=== PATIENT | male | born 1995 | race Caucasian/White ===

== ENCOUNTER 2016-09-08 10:31 | Emergency (ER) | payer OTHER ==
[2016-09-08 10:42] VITALS: BP 129/68
--- NOTE | 2016-09-08 11:03 | PROVIDER DOCUMENTATION ---
HPI-Respiratory General - General Chief Complaint: Cough Stated Complaint: POSS PNEUMONIA Time Seen by Provider: 09/08/16 10:45 Source: patient Allergies/Adverse Reactions: Patient Allergies Allergy/AdvReac Type Severity Reaction Status Date / Time No Known Allergies Allergy Verified 01/23/16 19:30 Home Medications: Home Medication List Medication Instructions Recorded Confirmed Last Taken Type Amoxicillin/Pot Clavulanate 875 mg PO Q12HR #14 tablet 09/08/16 Unknown Rx [Augmentin] Benzonatate [Tessalon Perle] 200 mg PO QHS PRN #30 capsule 09/08/16 Unknown Rx Loratadine/Pse E.r. 24 Hr 1 each PO DAILY #20 tablet 09/08/16 Unknown Rx [Claritin-D 24 Hr] - History of Present Illness-Resp Nature of Presenting Problem: 20 y/o WM c/o cough x 2.5 weeks. Pt states he has been coughing up green/ brown mucus. Denies any fever/chills, sore throat, abd. pain, N/V/D/C. States taking nyquil OTC with some relief of the cough, but only for 1-2 hours at a time. Reports being outside in cold for [employer] over last 4 days. Review of Systems - Adult - REVIEW OF SYSTEMS - ADULT Constitutional: reports: no symptoms reported. denies: chills, fever Eyes: reports: no symptoms reported. denies: blurred vision, double vision Ears, Nose, Mouth & Throat: reports: sinus problem. denies: ear pain, nose pain Cardiovascular: reports: no symptoms reported. denies: chest pain, palpitations Respiratory: reports: see HPI, cough. denies: shortness of breath Gastrointestinal: reports: see HPI, vomiting. denies: abdominal pain, diarrhea , nausea Genitourinary: reports: no symptoms reported. denies: dysuria, frequency Musculoskeletal: reports: no symptoms reported. denies: joint pain, joint swelling Integumentary: reports: no symptoms reported. denies: nail changes, rash Neurological: reports: no symptoms reported. denies: headache/migraines, numbness, paresthesia Psychiatric: reports: no symptoms reported Endocrine: reports: no symptoms reported. denies: cold intolerance, heat intolerance Hematologic/Lymphatic: reports: no symptoms reported. denies: easy bruising, prolonged bleeding Allergic/Immunologic: reports: no symptoms reported All Other Systems: Reviewed and Negative Past History - Adult - PAST MEDICAL HISTORY-ADULT Review of Records: reports: Nursing Assessment Review, Medications Reviewed Major Childhood Illnesses: reports: denies history Cardiovascular: reports: denies history Respiratory: reports: denies history Gastrointestinal: reports: denies history Genitourinary: reports: denies history Musculoskeletal: reports: denies history - SOCIAL HISTORY Smoking: denies Alcohol Use Frequency: never Physical Exam-General - PHYSICAL EXAM-ADULT Initial Vital Signs Reviewed: Yes - CONSTITUTIONAL General Appearance: alert, mild distress - EYES Eyes: pink conjunctivae - HEAD, EARS, NOSE, MOUTH & THROAT HENMT: normocephalic/atraumatic, moist mucous membranes, pharynx normal, maxillary tenderness. negative: frontal tenderness - NECK Neck: supple, normal inspection. negative: lymphadenopathy - RESPIRATORY Respiratory: lungs clear, decreased breath sounds. negative: crackles, rales, rhonchi, stridor, wheezing - CARDIOVASCULAR Cardiovascular: regular rate, rhythm. negative: bradycardia, tachycardia - LYMPHATIC Lymphatic: no adenopathy - MUSCULOSKELETAL Back Exam: normal inspection Extremity: normal gait - SKIN Integumentary: normal color, normal turgor, warm/dry - NEUROLOGIC Neurologic: negative: aphasia - PSYCHIATRIC Psych/Mental Status: normal mood/affect, normal thought content, normal thought process, oriented x 3 Progress - XRAY 1 XRAY Study: Chest Impression: See EMR Report (no discrete PNA, per Dr. Diaz) Departure - Departure Time of Disposition Order: 11:15 DIAGNOSIS: Bronchitis DIAGNOSIS: (Ruled Out): Influenza Disposition: HOME 01 Certified Medical Emergency: Emergent Condition: Stable Additional Instructions: Take medications as directed. Follow up with PCP in 3-5 days for recheck. Return if symptoms get worse. ED Follow Up Instructions: You have been treated by a care provider in the Emergency Department. These instructions are being provided to you so you can have an understanding of how to care for yourself upon discharge. Upon discharge from the Emergency Department, you are responsible for making arrangements for follow-up care by a physician of your choice. Take all prescribed medications as directed. Return to the Emergency Department immediately for any new or worsening symptoms. You may call the Physician Referral phone number at [phone] to obtain a list of Physicians who are taking new patients. Prescriptions: Amoxicillin/Pot Clavulanate [Augmentin] 875 mg PO Q12HR #14 tablet Loratadine/Pse E.r. 24 Hr [Claritin-D 24 Hr] 1 each PO DAILY #20 tablet Benzonatate [Tessalon Perle] 200 mg PO QHS PRN #30 capsule PRN Reason: Cough Referrals: Vernon Pantoja [Primary Care Provider] - Attestation - Physician/ ROSALINO Attestation Patient care was provided by Advanced Practice Provider:: Yes Advanced Practice Provider:: Danita Jackson Advanced Practice Provider documentation review:: The Mid-level provider documentation, treatment plan and medical decision making was reviewed by the physician who agrees with all treatment and medical decision making by the MLP.
[2016-09-08] MEDS ORDERED: DECADRON IM ONE (11:19)
--- NOTE | 2016-09-08 11:54 | Diag Imaging Result Document ---
PROCEDURE NAME: CHEST-2 VIEWS - 09/08/2016 CHEST, 2 VIEWS: FINDINGS: No comparison exam. The heart size is normal. There is slight prominence of the lower lung interstitial markings. There is no consolidation, pleural effusion, or pneumothorax identified. IMPRESSION: Nonspecific slight prominence of lower lung interstitial markings. No other evidence of acute disease. No discrete pneumonia.
== END 2016-09-08 12:00 | disposition home or self-care (01) ==
LOC: P.ED 10:31
DX: J40 Bronchitis, not specified as acute or chronic (principal); R05 Cough; R11.10 Vomiting, unspecified
CPT/HCPCS: 71020; 87804; 96372